=== PATIENT | male | born 1960 | race Caucasian/White ===

== ENCOUNTER 2020-12-08 08:30 | Outpatient (CLI) | payer OTHER, SELFPAY ==
--- NOTE | ~2020-12-08 | CT_ITS ---
EXAMINATION: CT abdomen pelvis wo con EXAM DATE: 12/08/2020 09:05 INDICATION: R10.84 - Generalized abdominal pain . Umbilical pain since 2012. Right-sided abdominal pa in 2-3 months. TECHNIQUE: Spiral CT of the abdomen and pelvis was performed without contrast. Axial, coronal and s agittal images of the abdomen and pelvis were reviewed. The dose-length product (DLP) for this exami nation was 767.79 mGy-cm. The exposure was tailored according to patient size (auto mA exposure cont rol), and iterative reconstruction (ASIR) was used as additional dose reduction technique. There is no prior study for comparison. FINDINGS: There is moderate-sized left periumbilical fat-containing hernia. The liver, spleen, adren al glands and pancreas are unremarkable. Gallbladder is unremarkable. No biliary obstruction. Ther e is no nephrolithiasis or hydronephrosis. Mild to moderate prostatomegaly. The bladder is unremar kable. There is no retroperitoneal or pelvic lymphadenopathy. There is mild scattered arterioscler otic disease. The appendix is normal. The stomach and small bowel are unremarkable. There is moderate amount of c olonic stool. There is mild scattered colonic diverticulosis. There is no adjacent inflammatory marcelino ge to suggest diverticulitis. No free intraperitoneal gas. The heart is normal in size. There are no pericardial or pleural effusions. The lung bases are unremarkable. There are no osteoblastic or osteolytic lesions identified. IMPRESSION: 1. Moderate size left periumbilical fat-containing hernia. 2. Mild to moderate prostatomegaly. 3. Mild diverticulosis. 4. No acute findings Reviewed, dictated and finalized at location A.
== END 2020-12-08 08:31 | disposition home or self-care (01) ==
LOC: ANHIMG 08:33
PROVIDERS: PCP Internal Medicine; Visit Provider Nurse Practitioner
DX: R10.84 Generalized abdominal pain (principal); K57.30 Diverticulosis of large intestine without perforation or abscess without bleeding; N40.0 Benign prostatic hyperplasia without lower urinary tract symptoms; K42.9 Umbilical hernia without obstruction or gangrene
CPT/HCPCS: 74176

== ENCOUNTER 2020-12-08 09:29 | Outpatient (CLI) | payer OTHER, SELFPAY ==
--- NOTE | ~2020-12-08 | XR_ITS ---
XR knee LT 3V DATE: 12/08/2020 09:56 INDICATION: Left knee pain. No known injury. TECHNIQUE: 3 views COMPARISON: None FINDINGS: There is slight periarticular spurring. No fracture or dislocation, periosteal reaction or bone destruction. Joint spaces are preserved. No radiopaque intra-articular loose body or chondroc alcinosis. IMPRESSION: Slight izabella-articular patellar spurring Reviewed, dictated and finalized at location B.
--- NOTE | ~2020-12-08 | XR_ITS ---
XR hip LT min 2V DATE: 12/08/2020 09:56 INDICATION: Left hip pain. No known injury. TECHNIQUE: AP and lateral views COMPARISON: None FINDINGS: No fracture or dislocation. There is moderately severe osteoarthritis. The sacroiliac kalani nts and pubic symphysis are intact. IMPRESSION: Moderately severe left hip osteoarthritis Reviewed, dictated and finalized at location B.
== END 2020-12-08 09:30 | disposition home or self-care (01) ==
LOC: ANHIMG 09:33
PROVIDERS: PCP Internal Medicine; Visit Provider Nurse Practitioner
DX: G89.29 Other chronic pain (principal); M25.562 Pain in left knee; M16.12 Unilateral primary osteoarthritis, left hip
CPT/HCPCS: 73502; 73562

== ENCOUNTER 2020-12-08 10:01 | Outpatient (CLI) | payer OTHER, SELFPAY ==
[2020-12-08 10:53] LABS: Alanine Aminotransferase 17 U/L (4-50); Albumin Level 4.8 g/dL (3.5-5.1); Alkaline Phosphatase 85 U/L (38-126); Anion Gap 8 mmol/L (8-16); Aspartate Amino Transferase 21 U/L (17-59); Bilirubin,Total 0.9 mg/dL (0.2-1.3); Blood Urea Nitrogen 19 mg/dL (9-20); Calcium 9.8 mg/dL (8.4-10.2); Carbon Dioxide 28 mmol/L (22-30); Chloride 100 mmol/L (98-107); Cholesterol 238 mg/dL (0-200); Estimated Glomerular Filt Rate > 60; Glucose 235 mg/dL (65-110); HDL Direct 38 mg/dL; Potassium 4.9 mmol/L (3.4-5.0); Sodium 136 mmol/L (137-145); Triglycerides 153 mg/dL (<150)
[2020-12-08 11:04] LABS: LDL Cholesterol Direct 166 mg/dL
[2020-12-08 11:23] LABS: Prostate Specific Antigen 0.8 ng/mL (< OR = 4.0)
== END 2020-12-08 10:02 | disposition home or self-care (01) ==
LOC: ANHLAB 10:03
PROVIDERS: PCP Internal Medicine; Visit Provider Nurse Practitioner
DX: Z00.00 Encounter for general adult medical examination without abnormal findings (principal); Z12.5 Encounter for screening for malignant neoplasm of prostate
CPT/HCPCS: 36415; 80053; 80061; 84153; 84443; G0103

== ENCOUNTER 2020-12-23 10:40 | Outpatient (CLI) | payer OTHER, SELFPAY ==
--- NOTE | 2020-12-23 13:29 | WPDPFTINT ---
PFT Procedure Performed PFT Procedure Performed Plethysmography (Lung Vol) Diffusing Cap (DLCO) Flow Vol Loop Spirometry w/o Bronchodil PFT Interpretation This is a pulmonary function test with spirometry, plethysmography and diffusing capacity. The test was performed and results interpreted in accordance with the 2019 and 2005 ATS/ERS Task Force guidelines respectively using the Global Lung Function Initiative-2012 reference equations. Patient demonstrated good effort and cooperation. Reproducibility criteria were met. The quality of the spirometry maneuver was Grade A. Findings: Spirometry: the contour the inspiratory and expiratory flow tracing are normal. The FVC is 4.99 L, 94% predicted. The FEV1 is 3.96 L, 98% predicted. The FEV1: FVC ratio 79%. Plethysmography: The total lung capacity is 7.72 L, 99% predicted. The functional residual capacity is 4.01 L, 97% predicted. The residual volume is 2.54 L, 103% predicted. Diffusion capacity: The absolute diffusion capacity is 26.3, 87% predicted. The diffusing capacity corrected for alveolar volume is 3.67, 91% predicted. Impression: The spirometry is normal without evidence of an obstructive abnormality. The lung volumes are normal. The diffusing capacity is normal. There are no prior studies for comparison
== END 2020-12-23 10:41 | disposition home or self-care (01) ==
LOC: ANHPFT 10:41
PROVIDERS: PCP Internal Medicine; Visit Provider Nurse Practitioner
DX: R06.02 Shortness of breath (principal)
CPT/HCPCS: 94375; 94726; 94729

== ENCOUNTER 2022-07-11 08:23 | Outpatient (CLI) | payer MEDICARE, SELFPAY ==
--- NOTE | 2022-07-11 08:30 | ECG_ITS ---
Measurements Intervals Solen Rate: 74 P: 41 NE: 158 QRS: -3 QRSD: 94 T: 74 QT: 375 QTc: 416 Interpretive Statements SINUS RHYTHM DELAYED PRECORDIAL R/S TRANSITION BORDERLINE ECG NO PREVIOUS ECG AVAILABLE FOR COMPARISON Electronically Signed On 07-11-2022 8:47:59 CDT by Dimitri Spring D.O.
== END 2022-07-11 08:24 | disposition home or self-care (01) ==
PROVIDERS: Visit Provider Surgery
DX: Z01.818 Encounter for other preprocedural examination (principal); K42.0 Umbilical hernia with obstruction, without gangrene; Z72.0 Tobacco use
CPT/HCPCS: 36415; 86850; 86900; 86901; 93005

== ENCOUNTER 2022-07-13 00:59 | Day surgery (SDC) | payer MEDICARE, SELFPAY ==
[2022-07-06 12:41] VITALS: BMI 28.5
--- NOTE | 2022-07-06 12:49 | PC.NURSE ---
Report to the Outpatient Waiting Room, entrance under the green pavilion located off [facility], at time 0600_ on date _07/13/22 _. Planned Procedure Time: __0730_. Time changes happen often and if your time is changed the preop area will call you the afternoon before. - You and your visitor will be asked to self-screen and do not enter if you have any COVID symptoms. - A mask is optional within the hospital at this time. Patients may have clear liquids (water, carbonated beverages, clear teas, apple juice) until 3 hours prior to surgery with a maximum of 20 ounces. - No food from midnight until time of surgery - Infants may have breast milk until 4 hours before surgery, formula 6 hours prior to surgery. - Children will be allowed to drink immediately following surgery. If applicable, please bring a bottle or sippy cup to assist with drinking. Juice, water, soda, and popsicles are readily available. For infants on formula, please bring formula the day of surgery. Pacifiers are allowed. Take the following medications with a SIP of water the morning of surgery: NONE DO NOT STOP ANY OF YOUR OTHER PRESCRIPTION MEDICATIONS PRIOR TO SURGERY ?EXCEPT THE FOLLOWING Medications to discontinue per physician NONE Date to take last dose Please no make-up, nail japanese, hairspray, perfume, deodorant, or body powder the day of surgery. No jewelry (including any body piercings) or valuables the day of surgery, leave them at home. Please take a shower or bath the night before, or the morning of, surgery with an antibacterial soap (HIBICLENS). Wear comfortable, loose fitting clothing. Children are encouraged to wear pajamas. - Jewelry must be removed prior to entering the operating room. Rings and piercings that are not removed may be cut off. - The hospital will not accept responsibility for valuables. - Please leave all valuables, including medications, at home the day of surgery. If you are going home after surgery, a licensed helper/driver must drive you home. - NO public transportation without another adult if you receive anesthesia. - We recommend that an adult stay with you for 24 hours following discharge. - We also recommend that you do not drive, make important decision, drink alcoholic beverages, or take any drugs that were not prescribed by your health care provider for at least 24 hours after your discharge time. For Pediatric surgeries, we recommend two adults accompany the child home. Follow any additional instructions given to you from your surgeon. If you or anyone in your household have experienced Covid symptoms in the past week, please notify your surgeon or the nurse liaison at the phone number below for possible testing. Telephone instructions given to PATIENT and asked if any additional questions and then verbalized understanding. Patient advised to call surgeon office or pre surgery nurse liaison [phone] if any additional questions.
[2022-07-13 06:10] VITALS: BP 160/74; PULSE 73; RESP 16; TEMP 36.3; O2SAT 96; BMI 26.4
[2022-07-13] MEDS: ACETAMINOPHEN 500 MG TABLET 1000 MG PO (06:48)
[2022-07-13] MEDS: LACTATED RINGERS 1,000 ML 30 ML IV CONT ×2 (06:48→09:14)
[2022-07-13] MEDS: KETOROLAC 15 MG/ML VIAL (*BKC) IV PUSH (06:48)
--- NOTE | 2022-07-13 07:10 | WPDANESEPPF ---
Anes - Initial Pre Proc Eval Procedure: Operation Date: 07/13/22 07:30 Proposed Procedures p Laparoscopic Incarcerated Umbilical Hernia Repair with Mesh, Davinci Assisted - Ravi Hinton DO Date/Time: 07/13/22 07:10 Surgeon: Ravi Hinton DO Pre Op Diagnosis: incarcerated umbilical hernia Patient Data Age: 62 Gender: M Height: 1.85 m Weight: 91.05 kg Last Vital Signs Temp 97.3 F L 07/13/22 06:10 Pulse 73 07/13/22 06:10 Resp 16 07/13/22 06:10 BP 160/74 H 07/13/22 06:10 Pulse Ox 96 07/13/22 06:10 O2 Del Method Room Air 07/13/22 06:10 Allergies Allergy/AdvReac Type Severity Reaction Status Date / Time No Known Allergies Allergy Unknown Verified 07/13/22 06:37 Home Medications Medication Instructions Recorded Confirmed Type No Home Medications 06/02/22 07/13/22 History Patient hx anesthesia problems: none Family hx anesthesia problems: none Results Review: All pre-operative results and documents have been reviewed as part of the pre-operative evaluation. FORMERLY [facility] Past Medical History Medical History Arthritis Carpal tunnel syndrome (~2006) Carpal tunnel syndrome on left (~2006) Cervical discitis (~2007) Chest pain Difficulty breathing Dislocated knee (~1977) Fatigue Hernia Leg pain Numbness Painful joint Vision changes Weakness Surgical History Surgical History H/O cervical spine surgery H/O elbow surgery (~2007) Bilateral H/O left inguinal hernia repair H/O left knee surgery History of bilateral carpal tunnel release Rotator cuff arthropathy (~1998) Family History Family History Son Diabetes mellitus Social History Social History Smoking packs per day: 0.5 Smoking cigarettes per day: 10.0 Years smoked: 50 Smoking pack-years: 25.00 Smoking status: Former smoker Tobacco type: cigarettes Additional smoking assessment comments: 11/2021 Alcohol intake: former Substance use: current Substance use type: marijuana Other substance usage details: DAILY Living arrangements: with family Occupation/Education: retired Gender identity (if verbalized by the patient): Male Spiritual care concerns: No Anes - Eval Final PreProcedure Day of Procedure 07/13/22 07:10 Patient weight: overweight Heart: regular rate and rhythm Lungs: clear to auscultation Airway: Mallampati scale class II Neurological: alert and oriented Last oral intake: >/= 8 hours ASA classification: II Emergent: no Anesthetic plan: proceed Anesthesia type and monitoring: general ETT and standard monitoring Results Review: All pre-operative results and documents have been reviewed as part of the pre-operative evaluation. Informed Consent: The patient's anesthetic plan and its attendant risks and benefits were discussed with the patient/family/POA. Questions were solicited and answers provided to the satisfaction of the patient/family/POA.
--- NOTE | 2022-07-13 07:14 | WPDHPUPDATE1 ---
History and Physical Update Update Date/Time: 07/13/22 07:14 History and Physical has been reviewed, including an updated exam of the patient. There are NO changes in the patient's condition. Risks, benefits, and alternatives have been discussed and questions answered. Patient agrees to proceed with procedure.
--- NOTE | 2022-07-13 07:14 | PM.IMHP ---
H&P: HPI History of Present Illness Date/Time: 07/13/22 07:14 Chief Complaint: umbilical hernia Narrative: 62 yo man presents for umbilical hernia repair. He reports no changes since last seen in office. Review of Systems Review of Systems: All systems reviewed & are unremarkable except as noted in HPI and below Constitutional: Constitutional: Denies chills, Denies fever(s), Denies headache(s) and Denies weight loss Eyes: Eyes: Denies change in vision ENT: Denies dizziness, Denies headache(s), Denies neck mass and Denies throat swelling Cardiovascular: Cardiovascular: Denies chest pain, Denies lightheadedness and Denies dyspnea Respiratory: Respiratory: Denies cough, Denies dyspnea and Denies wheezing Gastrointestinal: Gastrointestinal: Denies abdominal pain, Denies change in bowel habits, Denies nausea and Denies vomiting Genitourinary: Genitourinary: Denies hematuria and Denies dysuria Musculoskeletal: Musculoskeletal: Reports as per HPI Integumentary/Breasts: Skin/Breast: Reports as per HPI Neurologic: Denies dizziness and Denies headache(s) Allergic/Immunologic: Allergic/Immunologic: Denies throat swelling and Denies wheezing [facility] Past Medical History Medical History Arthritis Carpal tunnel syndrome (~2006) Carpal tunnel syndrome on left (~2006) Cervical discitis (~2007) Chest pain Difficulty breathing Dislocated knee (~1977) Fatigue Hernia Leg pain Numbness Painful joint Vision changes Weakness Surgical History Surgical History H/O cervical spine surgery H/O elbow surgery (~2007) Bilateral H/O left inguinal hernia repair H/O left knee surgery History of bilateral carpal tunnel release Rotator cuff arthropathy (~1998) Family History Family History Son Diabetes mellitus Social History Social History Smoking packs per day: 0.5 Smoking cigarettes per day: 10.0 Years smoked: 50 Smoking pack-years: 25.00 Smoking status: Former smoker Tobacco type: cigarettes Additional smoking assessment comments: 11/2021 Alcohol intake: former Substance use: current Substance use type: marijuana Other substance usage details: DAILY Living arrangements: with family Occupation/Education: retired Gender identity (if verbalized by the patient): Male Spiritual care concerns: No Meds Home Medications and Allergies Home Medications Medication Instructions Recorded Confirmed Type No Home Medications 06/02/22 07/13/22 History Allergies Allergy/AdvReac Type Severity Reaction Status Date / Time No Known Allergies Allergy Unknown Verified 07/13/22 06:37 Vital Signs Vital Signs - 24 hr 07/13/22 06:10 Temperature 36.3 C L Pulse Rate 73 Respiratory Rate 16 Blood Pressure 160/74 H Pulse Oximetry 96 Oxygen Delivery Room Air Exam Const: General: no acute distress and alert Orientation/consciousness: patient oriented x3 HENMT: Head: normocephalic and atraumatic Ears: hearing grossly normal bilaterally Face/Nose/Sinus: Normal nares present Mouth: Yes Normal oral and palatal mucosa present Eyes: Periorbital: periorbital findings normal Sclera: sclerae normal EOM: EOMs intact bilaterally Neck: Neck: normal visual inspection, no lymphadenopathy and trachea midline Chest: Chest palpation & inspection: normal inspection of the chest Resp: Effort & Inspection: normal respiratory effort Auscultation: clear to auscultation bilaterally Cardio: Jugular venous distension: no JVD Rate: regular rate Rhythm: regular rhythm Heart sounds: S1 normal heart sound present and S2 normal heart sound present Peripheral pulses: Peripheral pulses 2+ throughout GI: Inspection: normal to inspection GI Palp: Yes Soft to palpation, No Tenderness to pa
[2022-07-13] MEDS: ceFAZolin 2 GM/D5W 50 ML 2 GM/50 ML BAG IVPB (07:27)
--- NOTE | 2022-07-13 09:11 | W.PM.PROC2 ---
Procedure Note - Detailed Date of Procedure 07/13/22 Pre-op Diagnosis incarcerated umbilical hernia Post-op Diagnosis Same Procedure Performed Laparoscopic Incarcerated 3cm Hernia Repair with Mesh, da Genna assisted Surgeon Ravi Hinton DO Anesthesia General and Local (Exparel) Indications This is a 62-year-old man who presented with an enlarging hernia that he noticed starting about 10 years ago. He had a small hernia at his umbilicus that has increased in size over time. It is now protruding out further and occasionally caused some discomfort. He had a recent CT performed which showed evidence of a fat containing umbilical hernia. The hernia measured about 3 cm in diameter and was not reducible. It appeared to be containing omentum. Discussions were made with the patient about treatment options and decision was made to proceed with robotic assisted laparoscopic incarcerated umbilical hernia repair with mesh. Findings Laparoscopic umbilical hernia repair was performed. The hernia measured 3 cm and was incarcerated with omentum. The omentum was carefully reduced and decision was made to perform a transabdominal preperitoneal approach for repair. A preperitoneal pocket was created wide enough for mesh placement and the hernia sac was reduced. A Bard soft mesh cut to 10 cm x 10 cm was placed within the preperitoneal pocket and secured to the wall using 3-0 Vicryl sutures. No specimens were obtained for pathology. Description of Procedure Procedure as well as risks, benefits, and alternatives were discussed with the patient. Written consent was obtained and placed in chart prior to procedure. Patient was brought back to surgical suite. He was placed supine on operating table. Time-out was done to confirm patient and procedure. He was then intubated by the anesthesia department. A bump was placed under his left hip, and the bed was flexed slightly to extend the space between his costal margin and iliac crest. His abdomen was prepped and draped in sterile fashion using chlorhexidine prep. A 5 millimeter incision was made in the left upper quadrant, and a 5 millimeter Optiview trocar was advanced through the abdominal layers under direct visualization. Once inside the abdominal cavity, carbon dioxide insufflation was used to create a pneumoperitoneum. His abdomen was inspected. An 8 millimeter incision was made in the left lower quadrant, and an 8 millimeter robotic trocar was placed under direct visualization. Another 8 millimeter incision was made in the left lateral abdomen, and an 8 millimeter robotic trocar was placed under direct visualization. Exparel was infiltrated along the lateral abdominal zamora to perform a transversus abdominis plane block bilaterally. The 5 millimeter port was removed, and an 8 mm port was placed under direct visualization. The robotic arms were brought up to the patient's bedside and secured to the ports. The camera and instruments were inserted, and I then moved over to the robotic console and took control of the camera and instruments. After careful thorough inspection of the abdominal cavity, I began my dissection at the hernia. A preperitoneal plane was dissected starting from the left lateral abdomen and extending across to the right lateral abdomen. The hernia sac was reduced along with the hernia preperitoneal pocket. I then measured the hernia size. The hernia measured 3 cm. The fascia was closed using an 0-Stratafix running suture in a vertical fashion. A 10 cm x 10 cm Bard soft mesh was then placed within the preperitoneal pocket. This was oriented vertically with the mesh centered on the hernia defect. The mesh was then secured at the central portion and 4 corners using 3-0 Vicryl simple interrupted sutures. The peritoneum was then closed over the mesh using a 3 0 V lock running absorbable suture. The repair was inspected, and one final inspection was made around the abdominal cavity. The greta
[2022-07-13 09:14] VITALS: BP 122/71; PULSE 76; RESP 20; TEMP 36.6; O2SAT 93
[2022-07-13 09:30] VITALS: BP 119/64; PULSE 68; RESP 16; O2SAT 99
--- NOTE | 2022-07-13 09:34 | SUR.PHASEI ---
0934: Simple mask removed per patient.
[2022-07-13 09:45] VITALS: BP 116/64; PULSE 66; RESP 16; O2SAT 91
[2022-07-13 10:00] VITALS: BP 114/57; PULSE 71; RESP 16
[2022-07-13] MEDS: oxyCODONE HCL (*CRX) 5 MG TAB IR PO (10:29)
[2022-07-13 10:30] VITALS: BP 116/64; PULSE 74; RESP 16
== END 2022-07-13 10:54 | disposition home or self-care (01) ==
PROVIDERS: Visit Provider Surgery
PROC: (CPT 49594; principal; 2022-07-13 07:30)
DX: K42.0 Umbilical hernia with obstruction, without gangrene (principal); Z87.891 Personal history of nicotine dependence
CPT/HCPCS: 49594; 36415; 86850; 86900; 86901; 93005; A9270; C1781; C9290; J0690; J1100; J1170; J1885; J2405; J2704; J2710; J3010; J7030; J7120

== ENCOUNTER 2022-11-08 01:45 | Day surgery (SDC) | payer MEDICARE, SELFPAY ==
[2022-11-01 13:09] VITALS: BMI 28.3
--- NOTE | 2022-11-07 09:41 | P.PNAN_ITS ---
Anes - Initial Pre Proc Eval Procedure: Operation Date: 11/08/22 13:30 Proposed Procedures p Esophagogastroduodenoscopy & Screening Colonoscopy - Rigo Pena MD Date/Time: 11/07/22 09:41 Surgeon: Rigo Pena MD Pre Op Diagnosis: dysphagia; neoplasm screening Patient Data Age: 62 Gender: M Height: 1.85 m Weight: 97.6 kg Allergies Allergy/AdvReac Type Severity Reaction Status Date / Time No Known Allergies Allergy Unknown Verified 11/08/22 12:16 Home Medications Medication Instructions Recorded Confirmed Type cyclobenzaprine 10 mg tablet 10 mg PO TID PRN muscle spasm #45 10/12/22 11/08/22 Rx tabs Patient hx anesthesia problems: none Family hx anesthesia problems: none Results Review: All pre-operative results and documents have been reviewed as part of the pre- operative evaluation. FOR[facility] Past Medical History Medical History Arthritis Carpal tunnel syndrome (~2006) Carpal tunnel syndrome on left (~2006) Cervical discitis (~2007) Chest pain Difficulty breathing Dislocated knee (~1977) Fatigue Hernia Leg pain Numbness Painful joint Vision changes Weakness Surgical History Surgical History H/O cervical spine surgery H/O elbow surgery (~2007) Bilateral H/O left inguinal hernia repair H/O left knee surgery History of bilateral carpal tunnel release Hx of umbilical hernia repair lap incarcerated umbilical hernia re w/ mesh, Da Genna assisted 07/13/22 Rotator cuff arthropathy (~1998) Family History Family History Son Diabetes mellitus Social History Social History Smoking packs per day: 0.5 Smoking cigarettes per day: 10.0 Years smoked: 50 Smoking pack-years: 25.00 Smoking status: Current every day smoker Tobacco type: cigarettes Additional smoking assessment comments: 11/2021 Alcohol intake: former Substance use: current Substance use type: marijuana Other substance usage details: DAILY Last use: 11/01/22 Living arrangements: alone Occupation/Education: retired Gender identity (if verbalized by the patient): Male Spiritual care concerns: No Anes - Eval Final PreProcedure Day of Procedure 11/07/22 09:41 Patient weight: overweight Heart: regular rate and rhythm Lungs: clear to auscultation Airway: Mallampati scale class II and special considerations poor dentition (broken tooth top left) Neurological: alert and oriented Last oral intake: >/= 8 hours ASA classification: III Emergent: no Anesthetic plan: proceed Anesthesia type and monitoring: general GIVS and standard monitoring Results Review: All pre-operative results and documents have been reviewed as part of the pre- operative evaluation. Informed Consent: The patient's anesthetic plan and its attendant risks and benefits were discussed with the patient/family/POA. Questions were solicited and answers provided to the satisfaction of the patient/family/POA.
[2022-11-08 12:10] VITALS: BP 152/89; PULSE 80; RESP 18; TEMP 36.1; O2SAT 100; BMI 27.5
[2022-11-08] MEDS: LACTATED RINGERS 1,000 ML 150 ML IV CONT (12:29)
--- NOTE | 2022-11-08 13:40 | PM.HPGS ---
History of Present Illness History of Present Illness Consent: Risks, benefits, and alternatives have been discussed and questions answered. Patient agrees to proceed with procedure. Chief complaint: dysphagia; neoplasm screening Narrative: Chandler Mckeon is a 62 year old male Presents for both colonoscopy and EGD. Patient desires neoplasia screening colonoscopy. Current weight appetite bowel movements are normal. Previous colonoscopy 20 years ago was unremarkable. Patient presents today for neoplasia screening colonoscopy. Additionally patient complains of difficulty swallowing. Exact symptoms are somewhat difficult. He will eat and feel it has difficulty passing but then will regurgitate only liquid. He states this happens with shrimp. States is somewhat difficult to describe. He has states to call at regurgitation. He does feel that it what he eats will pass into his stomach however. Patient reports nausea and frequent regurgitation that he describes as vomiting. Typically vomiting is liquid and not particularly food he has recently eaten.. Patient denies any bleeding. Patient presents today for EGD to assess more thoroughly. Review of Systems Review of Systems: Review of systems noncontributory. [facility] Past Medical History Medical History Arthritis Carpal tunnel syndrome (~2006) Carpal tunnel syndrome on left (~2006) Cervical discitis (~2007) Chest pain Difficulty breathing Dislocated knee (~1977) Fatigue Hernia Leg pain Numbness Painful joint Vision changes Weakness Surgical History Surgical History H/O cervical spine surgery H/O elbow surgery (~2007) Bilateral H/O left inguinal hernia repair H/O left knee surgery History of bilateral carpal tunnel release Hx of umbilical hernia repair lap incarcerated umbilical hernia re w/ mesh, [facility] assisted 07/13/22 Rotator cuff arthropathy (~1998) Family History Family History Son Diabetes mellitus Social History Social History Smoking packs per day: 0.5 Smoking cigarettes per day: 10.0 Years smoked: 50 Smoking pack-years: 25.00 Smoking status: Current every day smoker Tobacco type: cigarettes Additional smoking assessment comments: 11/2021 Alcohol intake: former Substance use: current Substance use type: marijuana Other substance usage details: DAILY Last use: 11/01/22 Living arrangements: alone Occupation/Education: retired Gender identity (if verbalized by the patient): Male Spiritual care concerns: No Meds Home Medications and Allergies Home Medications Medication Instructions Recorded Confirmed Type cyclobenzaprine 10 mg tablet 10 mg PO TID PRN muscle spasm #45 10/12/22 11/08/22 Rx tabs Allergies Allergy/AdvReac Type Severity Reaction Status Date / Time No Known Allergies Allergy Unknown Verified 11/08/22 12:16 Vital Signs Vital Signs - 24 hr 11/08/22 12:10 Temperature 96.9 F L Pulse Rate 80 Respiratory Rate 18 Blood Pressure 152/89 H Pulse Oximetry 100 Oxygen Delivery Room Air Exam Narrative: Physical exam reveals patient to be alert. Vital signs stable. HEENT exam reveals no icterus. Lungs are clear to auscultation and percussion. Heart is without murmur or extra sounds. Chest reveals a palpable as xiphoid process the patient states somewhat tender. Abdomen is obese. Bowel sounds are present soft nontender with no organomegaly. Digital rectal exam is normal. Assessment and Plan Assessment and plan (1) Difficulty swallowing: Code(s): R13.10 - Dysphagia, unspecified Status: Acute Assessment and Plan: Patient reports some difficulty shortly after eating. May represent dysphagia. May represent regurgitation. P
[2022-11-08] MEDS: SIMETHICONE ORAL SUSPENSION 20 MG/0.3 ML 30 ML BOTTLE 0.6 ML IRRIGATION (13:59)
--- NOTE | 2022-11-08 14:22 | SUR.OPER ---
EGD START 1358, END 1402 COLONOSCOPY START 1411, END 1420
[2022-11-08 14:28] VITALS: BP 92/54; PULSE 66; RESP 22; O2SAT 98
[2022-11-08 14:38] VITALS: BP 106/65; PULSE 66; RESP 14; O2SAT 95
[2022-11-08 14:48] VITALS: BP 125/76; PULSE 66; RESP 14; O2SAT 95
== END 2022-11-08 14:59 | disposition home or self-care (01) ==
PROVIDERS: PCP Nurse Practitioner; Visit Provider Internal Medicine Gastroenterology
PROC: 0DJ08ZZ Inspection of Upper Intestinal Tract, Via Natural or Artificial Opening Endoscopic (ICD-10-PCS; CPT 43235; principal; 2022-11-08 13:30)
DX: Z12.11 Encounter for screening for malignant neoplasm of colon (principal); K64.8 Other hemorrhoids; K22.70 Barrett's esophagus without dysplasia; F17.210 Nicotine dependence, cigarettes, uncomplicated; F12.90 Cannabis use, unspecified, uncomplicated
CPT/HCPCS: 43239; 43450; G0121; 87081; 88305; J2704; J3010; J7120

== ENCOUNTER 2023-06-07 12:54 | Outpatient (CLI) | payer MEDICARE, SELFPAY ==
--- NOTE | ~2023-06-07 | US_ITS ---
EXAMINATION: US carotid duplex BI DATE: 06/07/2023 14:00 INDICATION: Paresthesias of skin. TECHNIQUE: Grayscale, color Doppler, and pulsed Doppler images of the cervical carotid arteries were obtained. The degree of vessel stenosis is placed in one of the following categories: normal, <50%, 5 0-69%, >=70% but less than near-occlusion, near-occlusion, or total occlusion. Note that percent sten osis relative to normal distal artery lumen diameter is indirectly measured from velocity measurement s as described by Tramaine, et al. Radiology 2003; [id number]:[id number]. COMPARISON: None. FINDINGS: RIGHT: The right common carotid artery (CCA) peak systolic velocity (PSV) is 78 cm/s. The right internal car otid artery (ICA) PSV is 87 cm/s. The right ICA end-diastolic velocity (EDV) is 29 cm/s. The right IC A/CCA PSV ratio is 1.1. Grayscale and color Doppler images yield an estimate of <50% diameter reducti on from plaque in the ICA. The external carotid artery (ECA) PSV is 111 cm/s. There is antegrade flow in the right vertebral artery. LEFT: The left CCA PSV is 95 cm/s. The left ICA PSV is 85 cm/s. The left ICA EDV is 26 cm/s. The left ICA/C CA PSV ratio is 0.9. Grayscale and color Doppler images yield an estimate of <50% diameter reduction from plaque in the ICA. The ECA PSV is 98 cm/s. There is antegrade flow in the left vertebral artery. IMPRESSION: 1. <50% stenosis in the right internal carotid artery. 2. <50% stenosis in the left internal carotid artery. Reviewed, dictated and finalized at location B.
== END 2023-06-07 12:55 | disposition home or self-care (01) ==
LOC: ANHIMG 12:59
PROVIDERS: PCP Nurse Practitioner; Visit Provider Nurse Practitioner
DX: R20.2 Paresthesia of skin (principal); H54.60 Unqualified visual loss, one eye, unspecified; I65.23 Occlusion and stenosis of bilateral carotid arteries
CPT/HCPCS: 93880

== ENCOUNTER 2024-03-25 14:01 | Outpatient (CLI) | payer MEDICARE, SELFPAY ==
--- NOTE | ~2024-03-25 | XR_ITS ---
EXAMINATION: XR lumbar spine min 4V DATE: 03/25/2024 14:48 INDICATION: Low back pain, unspecified. TECHNIQUE: 5 views of lumbar spine were obtained. COMPARISON: CT abdomen and pelvis 12/08/2020 FINDINGS: Alignment is normal. There is mild chronic anterior wedging of T11 and T12 vertebral bodies . Intervertebral disc heights are normal. There are endplate osteophytes at multiple levels. There is multilevel mild facet joint osteoarthritis. There is severe bilateral facet joint osteoarthritis at L5-S1. IMPRESSION: 1. Mild lumbar spondylosis. Reviewed, dictated and finalized at location A. ION PHOTOGRAPHER IMPRESSION: 1. Mild lumbar spondylosis.
--- NOTE | ~2024-03-25 | XR_ITS ---
EXAMINATION: XR hip BI wo pelvis DATE: 03/25/2024 14:48 INDICATION: Pain in unspecified hip. TECHNIQUE: 2 views of right hip and 2 views of left hip were obtained. COMPARISON: Left hip radiographs 12/08/2020 FINDINGS: Alignment is normal. No fracture. There is moderate osteoarthritis of the hips. IMPRESSION: 1. Moderate osteoarthritis of the hips. Reviewed, dictated and finalized at location A. IFICATIONS CHECKER
[2024-03-25 14:42] LABS: Hematocrit 51.1 % (42.0-52.0); Hemoglobin 17.6 g/dL (14.0-18.0); Mean Corpuscular HGB Conc 34.4 g/dl (32-36); Mean Corpuscular Hemoglobin 29.9 pg (26-34); Mean Corpuscular Volume 86.8 fl (80-100); Mean Platelet Volume 11.2 fl (7.4-10.4); Platelet Count Result 173 k/mm3 (150-375); Red Blood Count 5.89 M/mm3 (4.6-6.20); Red Cell Distribution Width 13.1 % (11.5-14.5); White Blood Count 6.4 K/mm3 (4.5-10.0)
[2024-03-25 14:52] LABS: Alanine Aminotransferase 26 U/L (6-50); Albumin Level 4.3 g/dL (3.5-5.1); Alkaline Phosphatase 91 U/L (38-126); Anion Gap 7 mmol/L (4-12); Aspartate Amino Transferase 22 U/L (17-59); Bilirubin,Total 0.8 mg/dL (0.2-1.3); Blood Urea Nitrogen 15 mg/dL (9-20); Calcium 9.4 mg/dL (8.4-10.2); Carbon Dioxide 27 mmol/L (22-30); Chloride 102 mmol/L (98-107); Cholesterol 228 mg/dL (0-200); Estimated Glomerular Filt Rate > 60; Glucose 247 mg/dL (65-110); HDL Direct 47 mg/dL; Potassium 4.3 mmol/L (3.4-5.0); Sodium 136 mmol/L (137-145); Triglycerides 118 mg/dL (<150)
[2024-03-25 14:54] LABS: Iron 111 ug/dL (49-181)
--- OUTSIDE RECORDS SUMMARY | 2024-03-25 15:01 | XMS_ITS | Clinical Summary ---
Author Organization [facility] Address [address] [place] [address]. [place] [id number] [place] [id number] Care Team Providers Care Pet Sitter Name Role Phone Chandler Lobo RESEARCH COORDINATOR Primary Care Provider [phone] Social History Tobacco Use Types Packs/Day Years Used Date Smoking Tobacco: Never Assessed Sex and Gender Information Value Date Recorded Sex Assigned at Not on file Legal Sex Male 8:24 PM CDT Gender Identity Not on file Sexual Orientation Not on file Plan of Treatment Health Maintenance Due Date Last Done Comments Colorectal Cancer Screening Colonoscopy (10 Years) 1960 Annual Physical 02/14/1963 Hepatitis C 02/14/1978 DTaP, Tdap and Td Vaccines ( 1 - Tdap) 02/14/1979 Zoster Vaccines (1 of 2) 02/14/2010 COVID-19 Vaccine ( - 2023-2 5 season) 2023 Influenza Adult (#1) 2023 RSV Immunization or 60+ Years (1 - 1-dose 75+ series) 02/14/2035 Meningococcal B Vaccine Aged Out No l onger eligible based on patient's age to complete this topic Meningococcal Vaccine Aged Out No egoff kathleen eligible based on patient's age to complete this topic Pneumococcal Vaccine: Pediat rics (0 to 5 Years) and At-Risk Patients (6 to 64 Years) Aged Out No longer eligible b ased on patient's age to complete this topic RSV Immunizations Under 20 Months Aged Out No longer eligible based on patient's age to complete this topic Insurance [employer] Care Teams Pet Sitter Relationship Specialty Start Date End Date Chandler Lobo, JAKUB PCP - General NURSE PRACTITIONER 12/18/20
[2024-03-25 15:03] LABS: LDL Cholesterol Direct 154 mg/dL
[2024-03-25 15:07] LABS: Percent Iron Saturation 39 % (20-50)
[2024-03-25 15:23] LABS: Prostate Specific Antigen 0.9 ng/mL (< OR = 4.0)
[2024-03-25 15:59] LABS: Hemoglobin A1C 10.2 % (<5.7)
== END 2024-03-25 14:02 | disposition home or self-care (01) ==
PROVIDERS: PCP Family Medicine; Visit Provider Family Medicine
DX: G47.00 Insomnia, unspecified (principal); G89.29 Other chronic pain; K22.70 Barrett's esophagus without dysplasia; M25.50 Pain in unspecified joint; M54.50 Low back pain, unspecified; M62.830 Muscle spasm of back; M79.671 Pain in right foot; R10.84 Generalized abdominal pain; R20.0 Anesthesia of skin; R20.2 Paresthesia of skin; R53.83 Other fatigue; R73.9 Hyperglycemia, unspecified; Z00.00 Encounter for general adult medical examination without abnormal findings; Z12.5 Encounter for screening for malignant neoplasm of prostate; E78.5 Hyperlipidemia, unspecified; M16.0 Bilateral primary osteoarthritis of hip
CPT/HCPCS: 36415; 72110; 73521; 80053; 80061; 82607; 82728; 83036; 83540; 83550; 84153; 84402; 84403; 84443; 85027; 86038; 86039; G0103

== ENCOUNTER 2024-07-30 15:19 | Outpatient (CLI) | payer MEDICARE, SELFPAY ==
[2024-07-30 17:28] LABS: Rheumatoid Factor < 12.0 IU/ML (<12)
[2024-07-30 18:17] LABS: Hemoglobin A1C 7.1 % (<5.7)
[2024-08-01 11:29] LABS: Homocysteine 13.7 umol/L (< or = 15.2)
[2024-08-01 12:43] LABS: Red Blood Cell Folate 379 ng/mL RBC (>280)
[2024-08-01 22:13] LABS: Immunofixation, Serum Normal pattern.
[2024-08-02 15:09] LABS: Methylmalonic Acid 142 nmol/L (69-390)
[2024-08-03 00:59] LABS: Vitamin B1 10 nmol/L (8-30)
== END 2024-07-30 15:20 | disposition home or self-care (01) ==
PROVIDERS: Psychiatry & Neurology Neurology; PCP Family Medicine; Visit Provider Family Medicine
DX: G62.9 Polyneuropathy, unspecified (principal); E11.9 Type 2 diabetes mellitus without complications; E55.9 Vitamin D deficiency, unspecified
CPT/HCPCS: 36415; 82607; 82652; 82747; 83036; 83090; 83921; 84207; 84425; 86038; 86039; 86334; 86430

== ENCOUNTER 2025-02-07 13:33 | Outpatient (CLI) | payer MEDICARE, SELFPAY ==
[2025-02-07 14:54] LABS: MALB Creatinine Ratio 16.0 mg/g (0-30)
[2025-02-07 15:15] LABS: Hemoglobin A1C 7.2 % (<5.7)
[2025-02-07 15:22] LABS: Alanine Aminotransferase 21 U/L (6-50); Albumin Level 4.1 g/dL (3.5-5.1); Alkaline Phosphatase 70 U/L (38-126); Anion Gap 1 mmol/L (4-12); Aspartate Amino Transferase 27 U/L (17-59); Bilirubin,Total 0.6 mg/dL (0.2-1.3); Blood Urea Nitrogen 28 mg/dL (9-20); Calcium 9.5 mg/dL (8.4-10.2); Carbon Dioxide 27 mmol/L (22-30); Chloride 108 mmol/L (98-107); Cholesterol 170 mg/dL (0-200); Estimated Glomerular Filt Rate > 60; Glucose 124 mg/dL (65-110); HDL Direct 38 mg/dL; Potassium 4.8 mmol/L (3.4-5.0); Sodium 136 mmol/L (137-145); Total Protein 7.4 g/dL (6.3-8.2); Triglycerides 164 mg/dL (<150)
[2025-02-07 16:18] LABS: Vitamin B12 349.0 pg/mL (239-931)
== END 2025-02-07 13:34 | disposition home or self-care (01) ==
PROVIDERS: PCP Family Medicine; Visit Provider Family Medicine
DX: E78.5 Hyperlipidemia, unspecified (principal); E11.9 Type 2 diabetes mellitus without complications; G47.00 Insomnia, unspecified; G89.29 Other chronic pain; E55.9 Vitamin D deficiency, unspecified
CPT/HCPCS: 36415; 80053; 80061; 82043; 82306; 82607; 83036